=== PATIENT | male | born 1955 | race Caucasian/White ===

== ENCOUNTER 2021-02-24 07:56 | Emergency (ER) | payer BC, OTHER ==
--- OUTSIDE RECORDS SUMMARY | 2021-02-24 07:59 | XMS REPORT | Continuity of Care Document ---
:1955 Author Organization [facility] t Address [address] [place] [address] Care Team Providers Name Role Phone Geno ORTA Primary Care Physician Doctor Unassigned, Name Attending Clinician Unavailable Toan Higgins MD Attending Clinician Corbin Lora MD Attending Clinician Ramirez Escalera MD Attending Clinician Herlinda YEBOAH Attending Clinician MD TOAN HIGGINS Attending Clinician Unavailable Renato Jones PA-C Attending Clinician Manfred Silvestre MA Attending Clinician Unavailable Provider Attending Clinician Unavailable Lab, Fam Pob I Attending Clinician Unavailable RONALDO Admitting Clinician Unavailable MD TOAN HIGGINS Admitting Clinician Unavailable Payers Payer Name Policy Type Policy Effective Date Expiration Date Sour ce Number [facility] [id number] 2019 [facility] MEDICARE(WELLME 00:00:00 Hospital D) [facility] MEDICARE ADVANTAGE [id number] 1/2020-Present MO Problems Condition Condition Condition Status Onset Resolution Last Treating Co mments Source Name Details Category Date Date Treatment Clinician Date Arthritis Arthritis Disease Active [facility] of knee, of knee, 02-04 st right right 00:00: Hospita 00 l Primary Primary Disease Active Overview: Meth jaqueline osteoarthr osteoarthr 01-[address] itis of itis of 00:00: g of this Hospi ta right knee right knee 00 note l might be different from the original. Added automatic ally from request for surgery [id number] Allergies, Adverse Reactions, Alerts This patient has no known allergies or adverse reactions. Social History Social Habit Start Date Stop Date Quantity Comments Source History of tobacco Current smoker Me [facility] use [facility] Exposure to Not sure [facility] SARS-CoV-2 (event) Hospit al Cigarettes smoked 2021-02-05 2021-02-[address] current (pack per 00:00:00 00:00:00 Hospita l day) - Reported Cigarette 2021-02-05 2021-02-05 [facility] pack-years 00:00:00 00:00:00 Hospital Tobacco use and 2021-02-05 2021-02-05 Never used [facility] exposure 00:00:00 00:00:00 Hospital Alcohol intake 2021-02-05 2021-02-05 Current drinker [facility]o dist 00:00:00 00:00:00 of alcohol Hospital (finding) Sex Assigned At [birth year] [facility] 00:00:00 00:00:00 Hospital Smoking Status Start Date Stop Date Source Former smoker 2021-02-05 00:00:00 2021-02-05 00:00:00 [facility] Medications Ordered Filled Start Stop Current Ordering Indication Dosage Frequency Signature Comments Components Source Medication Medication Date Date Medication? Clinician (SIG) Name Name HYDROcodone 2020- [place] [address] 1{tbl} Q6H Take 1 Methodi -acetaminop 8-04 08-[address] hen ([place]) 00:00: 04:59 mouth [facility] 10-325 mg 00 :00 every 6 l per tablet (six) hours as needed for moderate pain for up to 10 days .acute pain. Max Daily Amount: 4 tablets losartan Yes 25mg QD Take 25 mg Met hodi (COZAAR) 25 7-[address] MG tablet 00:38: nightly. [facility] 56 l ascorbic 2020- Yes 1000mg Q.5D Take 1,000 M ethodi acid 7-[address] (VITAMIN C 00:38: mouth 2 [facility] ORAL) 56 (two) l times a day. RED YEAST Yes QD Take by Metho di RICE ORAL 7-[address] 00:38: daily. Hospita 56 l docosahexae Yes QD Take by Met hodi noic 02-[address] acid/epa 00:38: daily. Hospita (FISH OIL 56 l ORAL) HYDROcodone 2020- No 1{tbl} Q6H Take 1 Methodi -acetaminop 02-05-[address] hen ([place]) 00:00: 04:59 mouth [facility] 10-325 mg 00 :00 every 6 l per tablet (six) hours as needed for severe pain for up to 10 days .acute pain. Max Daily Amount: 4 tablets traMADoL 2020- No 50mg Q4H Take 1 Metho di (ULTRAM) 50 02-05 tablet (50 s t mg tablet 00:00: 04:59 mg total) Ho spita 00 :00 by mouth l every 4 (four) hours as needed for moderate pain for up to 10 days .acute pain. methylPREDN 2020- No follow Met hodi ISolone 02-[address] (Medrol, 00:00: 04:59 directions Ho spita Tae,) 4 mg 00 :00 l tablet ezetimibe Yes 1{tbl} QD Take 1 Meth jaqueline (ZETIA) 10 6-[address] mg tablet 00:00: mouth Hospita 00 every l morning. sildenafiL Yes 1{tbl} Take 1 Met hodi (VIAGRA) 6-[address] 100 MG 00:00: mouth as Hospita tablet 00 needed. l allopurinol Yes 300mg QD Take 300 M ethodi (ZYLOPRIM) 2-[address] 300 MG 00:00: mouth Hospita tablet 00 every l morning. hydroCHLORO Yes 25mg QD Take 25 mg Methodi thiazide 2-[address] (HYDRODIURI 00:00: every Hospi ta L) 25 MG 00 morning. l tablet carvedilol Yes 12.5mg Q.5D Take 12.5 Methodi (COREG) 2-[address] 12.5 MG 00:00: mouth 2 Hospita tablet 00 (two) l times a day with meals. Vital Signs Vital Name Observation Time Observation Value Comments Source Systolic blood 2021-02-05 22:36:00 130 mm[Hg] [facility] pressure Diastolic blood 2021-02-05 22:36:00 71 mm[Hg] [facility] pressure Heart rate 2021-02-05 17:57:28 58 /min [facility] Body temperature 2021-02-05 17:57:28 35.83 Dana [facility] Respiratory rate 2021-02-05 17:57:28 18 /min [facility] Oxygen saturation in 2021-02-05 17:57:28 97 /min [facility] Arterial blood by Pulse oximetry Body height 2021-02-04 14:40:00 190.5 cm [facility] Body weight 2021-02-04 14:40:00 87.635 kg [facility] BMI 2021-02-04 14:40:00 24.15 kg/m2 [facility] Procedures Procedure Date / Time Performing Clinician Source Performed HC COMPLETE BLD COUNT 2021-02-05 08:49:00 Negrita Jones [facility] W/AUTO DIFF Renato BASIC METABOLIC PANEL 2021-02-05 08:49:00 [facility] ESTIMATED GFR 2021-02-05 08:49:00 Negrita Jones spital Renato MAGNESIUM LEVEL 2021-02-05 08:49:00 Negrita Jones spital Ren[place] PHOSPHORUS LEVEL 2021-02-05 08:49:00 Negrita Jones ospital Ren[place] POC GLUCOSE 2021-02-04 18:52:00 [facility]ICAL [facility]OLOG[facility] 2021-02-04 [facility]:11[facility] 2021-02-04 16:58:00 Ward Boles [facility] SUPRAGLOTTIC AIRWAY Stevie ARTHROPLASTY, KNEE, TOTAL 2021-02-04 16:51:00 [facility] POC GLUCOSE 2021-02-04 14:43:[address] [facility] ECG PRE/POST OP 2021-01-30 23:05:41 [facility] ospital HEMOGLOBIN A1C 2021-01-30 22:55:00 [place] [facility] ospital COVID-19 QUALITATIVE 2021-01-30 22:36:00 Ronaldo Kellie Toan [facility] RT-PCR IN ARTHROCENTESIS 2020-10-03 19:00:00 Laury[place]itney Negrita [facility] ASPIR&/INJ MAJOR JT/BURSA Renato W/O US IN ARTHROCENTESIS 2020-06-19 21:00:00 Ronaldo Kellie [facility] ASPIR&/INJ MAJOR JT/BURSA W/O US XR KNEE 3 VW RIGHT 2020-06-19 20:57[facility]EN[facility]AL[facility] 2020-06-19 [facility]:57[facility] Planned Activity Planned Date Details Comments Source Future Scheduled Test COVID-19 VACCINE (1) [facility] [code = COVID-19 VACCINE (1)] Future Scheduled Test Hepatitis C screening [facility] (procedure) [code = 944610035] Future Scheduled Test COLONOSCOPY SCREENING [facility] [code = COLONOSCOPY SCREENING] Future Scheduled Test SHINGLES VACCINES (#1) [facility] [code = SHINGLES VACCINES (#1)] Future Scheduled Test [address]+ [address]UM[address] [facility] VACCINE (1 of 1 - PPSV23) [code = 65+ PNEUMOCOCCAL VACCINE (1 of 1 - PPSV23)] Future Scheduled Test INFLUENZA VACCINE [code [facility] = INFLUENZA VACCINE] Encounters Start End Encounter Admission Attending Care Care Encounter Source Date/Time Date/Time Type Type Clinicians Facility Department ID 2021-02-21 2021-02-21 Orders Doctor HARLEY Da Silva2.840.114 [id number] 00:00:00 00:00:00 Only UnassignedASHVIN 350.1.13.10 [place] [facility] 4.2.7.2.686 [id number] [id number] 2021-02-13 2021-02-13 Orders Doctor HARLEY Da Silva2.840.114 [id number] 00:00:00 00:00:00 Only UnassignedASHVIN 350.1.13.10 [place] [facility] 4.2.7.2.686 [id number] 009 2021-02-122021-02-12 Orders Ronaldo, 1.2.840.1 [id number] Methodi 00:00:00 00:00:00 Only Kellie Joya 09207.1.[address] 3.430.2.7 Hospit a .3.944071 l .8 2021-02-12 2021-02-12 Telephone [facility] 1.2.840.114 [id number] 00:00:00 00:00:00 [facility] 350.1.13.10 [facility] 4.2.7.2.686 Professio [phone] nal [address] One 2021-02-04 2021-02-05 Hospital Ronaldo, 1.2.840.1 [id number] Methodi 09:10:00 19:38:00 Encounter Kellie Joya 57652.1.[address] 3.430.2.7 Hospit a .3.561080 l .8 2021-02-05 2021-02-05 Orders Ronaldo, 1.2.840.1 [id number] Methodi 00:00:00 00:00:00 Only Kellie Joya 03015.1.[address] 3.430.2.7 Hospit a .3.856517 l .8 2021-02-05 2021-02-05 [facility] 1.2.840.114 [id number] 00:00:00 00:00:00 [facility] 350.1.13.10 [facility] 4.2.7.2.686 Professio [phone] nal 044 Office [address] One 2021-02-04 2021-02-05 [facility] [id number] [address] [facility] 00:00:00 00:00:00 KELLIE Castellanos [facility] 2021-02-04 2021-02-04 Surgery Ronaldo, 1.2.840.1 [id number] Methodi 13:30:00 15:50:[address]17.1.[address] 3.430.2.7 Hospit a .3.023992 l .8 2021-02-04 2021-02-04 Anesthesia Gallo Escalera 1.2.840 .1 [id number] Methodi 11:51:00 13:38:00 Event [place] 33216.1.[address] 3.430.2.7 Hospit a .3.906980 l .8 2021-02-03 2021-02-03 Telephone Ronaldo, 1.2.840.1 [id number] [id number] Methodi 00:00:00 00:00:00 Kell[address] Joya [address].1.[address] 3.430.2.7 Hospit a .3.116819 l .8 2021-01-30 2021-01-30 Pre-Admiss Ronaldo, 1.2.840.1 [id number] Methodi 15:56:52 16:56:52 ion Kellie Joya 26293.1.[address] Testing 3.430.2.7 Hospit a .3.689090 l .8 2021-01-30 2021-01-30 Office Carlos Manuel 1.2.840.1 [id number] [id number] Methodi 14:37:14 15:33:14 Visit Negrita 82116.1.[address] Renato 3.430.2.7 Hospit a .3.040638 l .8 2021-01-30 2021-01-30 Travel 1.2.840.1 1.2.261.187 8202 [id number] Methodi 00:00:00 00:00:[address] 3.430.2.7 0.2.7.3.698 spita .3.456938 084.8 l .8 2021-01-30 2021-01-30 Outpatient CARLOS MANUEL [facility] [id number] [facility] 00:00:00 00:00:00 NEGRITA [address] 2021-01-30 2021-01-30 Outpatient RONALDO [facility] [id number] [address] [facility] 00:00:00 00:00:00 KELLIE Ahumada [facility] 2021-01-28 2021-01-28 Travel 1.2.840.1 1.2.830.518 [id number] [id number] Methodi 00:00:00 00:00:[address] 3.430.2.7 0.2.7.3.698 Ho spita .3.471324 084.8 l .8 2021-01-28 2021-01-28 Marissa Truong 1.2.840.1 [id number] Methodi 00:00:00 00:00:00 Only L [address]802.1.[address] 3.430.2.7 Hospit a .3.098748 l .8 2021-01-22 2021-01-22 Telephone [facility] 1.2.840.114 [id number] 00:00:00 00:00:00 [facility] 350.1.13.10 Edward Callao 4.2.7.2.686 Professio [phone] [place] [address] [address] 2021-01-20 2021-01-20 Documentat Provider, 1.2.840.1 [id number] Methodi 00:00:00 00:00:00 ion Unknown 47130.1.[address] 3.430.2.7 Hospit a .3.822957 l .8 2021-01-17 2021-01-17 Lmft Lab, [facility] 1.2.840.114 [id number] 08:38:41 08:58:41 Visit [facility] 350.1.13.10 [place] 4.2.7.2.686 Professio [phone] [place] [address] [address] 2021-01-17 2021-01-17 Office [facility] 1.2.840.114 [id number] 08:10:32 08:25:32 Visit [facility] 350.1.13.10 Edward Callao 4.2.7.2.686 Professio [phone] [place] [address] [address] 2021-01-15 2021-01-15 Marissa Truong 1.2.840.1 [id number] Methodi 00:00:00 00:00:00 Only L [address]402.1.[address] 3.430.2.7 Hospit a .3.003145 l .8 2020-10-03 2020-10-03 Office Carlos Manuel, 1.2.840.1 [id number] [id number] Methodi 13:18:21 14:58:27 Visit Negrita 48448.1.[address] Renato 3.430.2.7 Hospit a .3.443003 l .8 2020-10-03 2020-10-03 Outpatient CARLOS MANUEL [facility] [id number] [facility] 00:00:00 00:00:00 NEGRITA [address] 2020-10-02 2020-10-02 Travel 1.2.840.1 1.2.241.312 0866 [id number] Methodi 00:00:00 00:00:[address] 3.430.2.7 0.2.7.3.698 spita .3.650115 084.8 l .8 2020-06-19 2020-06-26 Office Ronaldo, 1.2.840.1 [id number] Methodi 14:37:34 16:40:34 Visit Kellie Joya 94102.1.[address] 3.430.2.7 Hospit a .3.153977 l .8 2020-06-19 2020-06-19 [facility] [id number] [facility] 00:00:00 00:00:00 KELLIE [address] 2020-06-19 2020-06-19 Outpatient [facility] [id number] 9[address] [facility] 00:00:00 00:00:00 KELLIE [address] 2020-06-19 2020-06-19 Outpatient [facility] [id number] [address] [facility] 00:00:00 00:00:00 KELLIE [address] 2020-06-19 2020-06-19 Travel 1.2.840.1 1.2.472.540 7051 [id number] Methodi 00:00:00 00:00:[address] 3.430.2.7 0.2.7.3.698 Ho spita .3.684288 084.8 l .8 2020-06-17 2020-06-17 Travel 1.2.840.1 1.2.639.821 3780 [id number] Methodi 00:00:00 00:00:[address] 3.430.2.7 0.2.7.3.698 Ho spita .3.382864 084.8 l .8 Results Test Description Test Time Test Comments Results Result Comments Source Surgical pathology request 2021-02-07 12:23:59 Test Item Value Reference Range Interpretation Comme nts Case number (test code = 9788038) [id number] Surgical pathology report (test code = See link below for PDF Lab R eport 225) Result status (test code = 9981824) This is Final Report for [id number] [facility] [id number] 18:52:56 Test Item Value Reference Range Interpretation Comments POC glucose (test code = 82049-3) 152 mg/dL 65-99 H Lab Interpretation (test code = Abnormal 34908-6) [facility]2021-07-27 16:58:00Ward Boles CRNA 02/04/2021 12:19 PMAirway Date/Time: 02/04/2021 11:58 AM Location:OR Performed by: PJ/AAAnesthesiologist: Gallo Escalera MDResiangelt/PJ/AA: Ward Boles CRNAAuthorized by: Gallo Escalera MD Urgency: ElectiveDifficult Airway: No Preoxygenated with 100% O2: Yes C-spine Precautions Maintained Throughout: Yes Mask Ventilation: Not attemptedFinal Airway Type: Supraglottic airwayFinal LMA: AmbuLMA Size: 5Number of Attempts at Approach: 1 Unable to seat I-gel 5 without large leak. Inserted Ambu style #5. Easy and atraumatic LMA insertion; Dentition unchanged; AOSI; +BSEB, +ETCO2; Eyes paper taped post [facility]chi [facility] Pre/Post [id number] 03:18:29 Test Item Value Reference Range Interpretation Comments Ventricular rate (test code = 253) Atrial rate (test code = 255) IN interval (test code = 266) QRSD interval (test code = 260) QT interval (test code = 264) QTC interval (test code = 265) P axis 1 (test code = 267) QRS axis 1 (test code = 268) T wave axis (test code = 270) EKG impression (test Marked sinus code = 273) bradycardia-Abnormal ECG-No previous ECGs available-Electronica lly Signed By Bartolo ORTA [facility] ([id number]) on 01/30/2021 10:18:28 PM Buddhist AsszfxbySAEN-IhJ-7 (COVID-19) RNA [Presence] in Respiratory specimen by JONATHON with probe [id number] 02:02:38 Test Item Value Reference Range Interpretation Comments SARS-CoV-2 (COVID-19) RNA Not detected Not-Detected [Presence] in Respiratory specimen by JONATHON with probe detection (test code = 33417-0) Whether patient is employed in a healthcare setting (test code = 94706-9) Whether the patient has symptoms related to condition of interest (test code = 12564-6) Patient was hospitalized because of this condition (test code = 68474-4) Whether the patient was admitted to intensive care unit (ICU) for condition of interest (test code = 30928-2) Whether patient resides in a congregate care setting (test code = 36434-8) Large Joint Arthrocentesis: knee, R [id number] 19:00:00Negrita Jones PA-C 10/03/2020 1:31 PMLarge Joint Arthrocentesis: knee, R kneePerformedby: Negrita Jones PA-CAuthorized by: Negrita Jones PA-C Consent given by: PatientIndications: PainLocation: KneeSite: R kneePrep: patient was prepped and draped in usual sterile fashion Ultrasound guided?: No Needle size (right): 25 GRight side approach: AnterolateralRight side medications: 80 mg methylPREDNISolone acetate 40 mg/mL; 2 mL lidocaine 10 mg/mL (1 %)[facility] Knee Cortisone [id number] 21:00:00 Kellie Higgins MD 06/19/2020 3:55 PMRight Knee Cortisone injectionConsent given by: patientTimeout: Immediately prior to procedure a time out was called to verify the correct patient, procedure, equipment, technician support engineer and site/side marked as required Supporting DocumentationIndications: pain Procedure DetailsPreparation: Patient was prepped and draped in the usual sterile fashionUltrasoundguided: noLocation: knee - R knee Right side:Approach: anteromedialRight knee medications administered: 2 mL lidocaine 10 mg/mL (1 %); 80 mg methylPREDNISolone acetate 40 mg/mLPatient tolerance: patient tolerated the procedure well with no immediate complications[facility]
--- NOTE | 2021-02-24 11:15 | RAD REPORT ---
EXAM DESCRIPTION: RAD - Chest Single View - 02/24/2021 11:08 am CLINICAL HISTORY: COUGH COMPARISON: ABDOMEN 1 VIEW KUB dated 02/09/2008; CT-STONE PROTOCOL dated 02/08/2008 FINDINGS: Prominence of the interstitial markings in the lung bases, right greater than left. No con solidative airspace process is identified. A few scattered nonspecific nodular foci noted. The heart size is within normal limits.No acute osseous abnormality. No significant pleural effusions or pneumo thorax. IMPRESSION: Prominent lung markings in the bases as well as some scattered nodules which could refle ct a mild infectious or inflammatory process.
--- NOTE | 2021-02-24 11:28 | ER ---
Nurse's Notes [facility] Name: Chu Emanuel Age: 65 yrs Sex: Male : 1955 Arrival Date: 02/24/2021 Time: 08:11 Bed 10 Private MD: Diagnosis: Other viral pneumonia;Viral infection, unspecified Presentation: 02/24 08:15 Chief complaint: Patient states: Body aches, fever and generally not feeling well x 1 ss week. Pt test positive for COVID 4 days ago. Coronavirus screen: Client presents with at least one sign or symptom that may indicate coronavirus-19. Ebola Screen: Patient denies exposure to infectious person. Patient denies travel to an Ebola-affected area in the 21 days before illness onset. Initial Sepsis Screen: Does the patient meet any 2 criteria? No. Patient's initial sepsis screen is negative. Does the patient have a suspected source of infection? No. Patient's initial sepsis screen is negative. Risk Assessment: Do you want to hurt yourself or someone else? Patient reports no desire to harm self or others. Onset of symptoms was February 17, 2021. Care prior to arrival: Medication(s) given: Normal saline infusion, 1000 mL, Tylenol, 1000 mg, IV initiated. 20 GA, in the right antecubital area. 08:15 Method Of Arrival: Ambulatory ss 08:15 Acuity: KLEVER 3 ss Historical: - Allergies: 08:18 No Known Allergies; ss - Home Meds: 08:18 carvedilol oral [Active]; hydrocodone [Active]; Hydrochlorothiazide Oral [Active]; ss - PMHx: 08:18 Hypertensive disorder; ss - PSHx: 08:18 R knee replacement; L hip replacement; Hernia repair; ss - Immunization history:: Client reports having NOT received the Covid vaccine. - Social history:: Smoking status: Patient denies any tobacco usage or history of. Vital Signs: 08:15 BP 110 / 67; Pulse 71; Resp 16; Temp 101(TE); Pulse Ox 95% on R/A; ss 10:30 Temp 98.1(O); Pulse Ox 98% on R/A; iw ED Course: 08:11 Patient arrived in ED. ss 08:18 Triage completed. ss 08:18 Arm band placed on left wrist. ss 10:30 Meg Whitaker, RN is Primary Nurse. iw 10:31 Missy Caro is Attending Physician. sp3 11:08 CXR XRAY In Process Unspecified. EDMS 14:11 Notified ED physician of a critical lab result(s). covid positive. ll1 Administered Medications: 11:32 CANCELLED (Physician Discretion; dose): REGEN-COV Dose Pack 120 mg/mL-120 mg/mL (EUA) 1 sp3 application IV at bolus continuous 11:46 Drug: REGEN-COV Dose Pack 120 mg/mL-120 mg/mL (EUA) 1 kit {Note: 600 mg dose given over iw 1 hour .} Route: IV; Rate: bolus; Site: right antecubital; 12:50 Follow up: IV Status: Completed infusion iw Outcome: 11:27 Discharge ordered by . sp3 13:55 Patient left the ED. iw Signatures: Dispatcher [employer] EDMS Meg Whitaker RN RN Rafia Mcbride RN RN ss Lewis, Lynsay, RN RN [facility] Missy Caro sp3
--- NOTE | 2021-02-24 11:28 | EDPHYS ---
Physician Documentation [facility] Name: Chu Emanuel Age: 65 yrs Sex: Male : 1955 Arrival Date: 02/24/2021 Time: 08:11 Bed 10 Private MD: ED Physician Missy Caro HPI: 02/24 10:42 This 65 yrs old Male presents to ER via Ambulatory with complaints of Body sp3 aches- COVID +. 10:42 65-year-old male with a history of hypertension presents with 6-day history of cough sp3 and congestion and body aches with a T-max fever of 102 Fahrenheit who took a home COVID-19 test which was positive approximately 3 days ago and now presents with increasing fatigue and mild shortness of breath. Patient denies chest pain, headache, bleeding, abdominal pain, nausea, vomiting, diarrhea, syncope, loss of taste or smell, known travel history, known sick contacts, any other aspects of review of systems at this time.. Historical: - Allergies: 08:18 No Known Allergies; ss - Home Meds: 08:18 carvedilol oral [Active]; hydrocodone [Active]; Hydrochlorothiazide Oral [Active]; ss - PMHx: 08:18 Hypertensive disorder; ss - PSHx: 08:18 R knee replacement; L hip replacement; Hernia repair; ss - Immunization history:: Client reports having NOT received the Covid vaccine. - Social history:: Smoking status: Patient denies any tobacco usage or history of. ROS: 10:43 Constitutional: Positive for body aches, chills, fatigue, fever, malaise. sp3 10:43 Constitutional: Positive for Negative for Please see HPI for remainder of ROS. 10:43 Cardiovascular: Negative for chest pain, edema. 10:43 Respiratory: Positive for cough, shortness of breath. 10:43 All other systems are negative. Exam: 10:45 Constitutional: This is a well developed, well nourished patient who is awake, alert, sp3 and in no acute distress. Head/Face: Normocephalic, atraumatic. Eyes: Pupils equal round and reactive to light, extra-ocular motions intact. Lids and lashes normal. Conjunctiva and sclera are non-icteric and not injected. Cornea within normal limits. Periorbital areas with no swelling, redness, or edema. ENT: Nares patent. No nasal discharge, no septal abnormalities noted. External auditory canals are clear. Oropharynx with no redness, swelling, or masses, exudates, or evidence of obstruction, uvula midline. Mucous membranes moist. Neck: Trachea midline, no thyromegaly or masses palpated, and no cervical lymphadenopathy. Supple, full range of motion without nuchal rigidity, or vertebral point tenderness. No Meningismus. Chest/axilla: Normal chest wall appearance and motion. Nontender with no deformity. No lesions are appreciated. Cardiovascular: Regular rate and rhythm with a normal S1 and S2. No gallops, murmurs, or rubs. Normal PMI, no JVD. No pulse deficits. Abdomen/GI: Soft, non-tender, with normal bowel sounds. No distension or tympany. No guarding or rebound. No evidence of tenderness throughout. Skin: Warm, dry with normal turgor. Normal color with no rashes, no lesions, and no evidence of cellulitis. Neuro: Awake and alert, GCS 15, oriented to person, place, time, and situation. Cranial nerves II-XII grossly intact. Motor strength 5/5 in all extremities. Sensory grossly intact. Cerebellar exam normal. Normal gait. Psych: Awake, alert, with orientation to person, place and time. Behavior, mood, and affect are within normal limits. 10:45 Respiratory: the patient does not display signs of respiratory distress, Respirations: normal, Breath sounds: + upper airway congestion. Vital Signs: 08:15 BP 110 / 67; Pulse 71; Resp 16; Temp 101(TE); Pulse Ox 95% on R/A; ss 10:30 Temp 98.1(O); Pulse Ox 98% on R/A; iw MDM: 10:33 Patient medically screened. sp3 10:46 ED course: Patient with COVID-19 with mild symptoms and no inflammatory response. sp3 Patient's pulse ox is normal as well as the rest of his vital signs. Will recommend patient to take 325 mg of aspirin daily and a multivitamin. Patient told to isolate and follow-up with his primary physician after 10 days or return here for any worsening symptoms or any concerns. Patient verbalized understanding and has no further questions. At this time I am not suspicious for secondary process including acute coronary syndrome, pulmonary embolism, bacterial pneumonia, sepsis, shock, or any other critical diagnoses at this time.. 11:23 ED course: X-ray demonstrates likely mild viral pneumonia bilaterally. Patient remains sp3 to have normal pulse oxygenation and is otherwise stable. Will discharge patient home as per previous plan and call him with his COVID-19 results.. 11:33 ED course: Patient is agreed to 1 Regeneron dose to ease his symptoms prior to sp3 discharge. 600 mg of Regeneron will be administered per standard protocol.. 02/24 13:50 Order name: SARS-COV-2 RT PCR EDMS 02/24 10:41 Order name: CXR XRAY; Complete Time: 11:20 sp3 Administered Medications: 11:32 CANCELLED (Physician Discretion; dose): REGEN-COV Dose Pack 120 mg/mL-120 mg/mL (EUA) 1 sp3 application IV at bolus continuous 11:46 Drug: REGEN-COV Dose Pack 120 mg/mL-120 mg/mL (EUA) 1 kit {Note: 600 mg dose given over iw 1 hour .} Route: IV; Rate: bolus; Site: right antecubital; 12:50 Follow up: IV Status: Completed infusion iw Disposition Summary: 02/24/21 11:27 Discharge Ordered Location: Home sp3 Condition: Stable sp3 Diagnosis - Other viral pneumonia sp3 - Viral infection, unspecified sp3 Followup: sp3 - With: Private Physician - When: As needed - Reason: Discharge Instructions: - Discharge Summary Sheet sp3 - Viral Respiratory Infection sp3 - COVID-19 sp3 - 10 Things You Can Do to Manage Your COVID-19 Symptoms at Home - [facility] sp3 Forms: - Medication Reconciliation Form sp3 - Thank You Letter sp3 - Antibiotic Education sp3 - Prescription Opioid Use sp3 Signatures: Dispatcher [employer] EDMS Meg Whitaker RN RN iw Rafia Mcbride RN RN ss Missy Caro sp3 Corrections: (The following items were deleted from the chart) 11:32 11:29 REGEN-COV Dose Pack 120 mg/mL-120 mg/mL (EUA) 1 application IV at bolus sp3 continuous ordered. sp3 12:46 10:41 CORONAVIRUS+GRACEZ ordered. EDMS EDMS
[2021-02-24] MEDS ORDERED: CASIRIVIMAB/IMDEVIMAB 10 ML VIAL ONE (11:53)
[2021-02-24] MEDS ORDERED: NA CHLORIDE 0.9% 250 ML ONE (12:00)
[2021-02-24 14:10] VITALS: BP 110/67
[2021-02-24 14:11] VITALS: TEMP 98.1; O2SAT 98
== END 2021-02-24 13:55 | disposition home or self-care (01) ==
LOC: ER 07:56
DX: U07.1 COVID-19 (principal); J12.89 Other viral pneumonia; I10 Essential (primary) hypertension
CPT/HCPCS: 71045; U0003; J7050; 96365; 99283

== ENCOUNTER 2023-11-16 10:50 | Day surgery (SDC) | payer OTHER ==
--- NOTE | 2023-11-12 14:56 | RAD REPORT ---
EXAM DESCRIPTION: RAD - Chest Pa And Lat (2 Views) - 11/12/2023 2:45 pm CLINICAL HISTORY: Preop COMPARISON: Chest Single View dated 02/24/2021; ABDOMEN 1 VIEW KUB dated 02/09/2008 FINDINGS: Lines: None. Lungs: No evidence of edema or pneumonia. Prominence of the basilar interstitial markings is unchange d. Pleural: No significant pleural effusions or pneumothorax. Cardiac: The heart size is within normal limits. Mediastinum: Within normal limits. Bones: No acute fractures. Other: None IMPRESSION: No acute cardiopulmonary disease.
[2023-11-12 15:23] LABS: Absolute Lymphocytes (CBC) 1.6 K/uL (0.7-4.9); Absolute Monocytes 0.8 K/uL (0.1-1.3); Absolute Neutrophil 7.3 K/uL (1.8-8.0); Basophils % 0.3 % (0-1.3); Eosinophils % 0.2 % (0-4.4); Hematocrit 41.8 % (39.6-49.0); Hemoglobin 14.5 g/dL (13.6-17.9); Lymphocytes % 16.4 % (15.3-44.8); MCH 33.5 pg (27.0-35.0); MCHC 34.7 g/dL (32.0-36.0); MCV 96.4 fL (80-100); MPV 7.9 fL (7.6-11.3); Monocytes % 7.9 % (3.3-12.3); Neutrophils % 75.2 % (41.7-73.7); Nucleated Red Blood Cells % 0.1 % (0-0); Platelets 196 thou/uL (152-406); RBC Red Blood Cell Count 4.34 M/uL (4.33-5.43); Red Cell Distribution Width 12.5 % (12.1-15.2)
[2023-11-12 15:28] LABS: PT Prothrombin Time 11.6 SECONDS (9.5-12.5); PTT, Activated Partial Thromb 28.3 SECONDS (24.3-36.9); Protime INR 1.06
[2023-11-12 15:36] LABS: Anion Gap 9.2 mEq/L (5.0-15.0); Potassium 3.2 mEq/L (3.5-5.1)
--- NOTE | 2023-11-15 14:47 | EKG ---
Test Date: 2023-11-12 Test Time: 14:31:10 Alloy Weigher: PEGGY MEASUREMENT RESULTS: Intervals: Rate: 63 ID: [id number] QRSD: 114 QT: 448 QTc: 458 [place]: P: 62 ID: [id number] QRS: 46 T: 70 INTERPRETIVE STATEMENTS: Normal sinus rhythm Normal ECG No previous ECG available for comparison Electronically Signed On 11-15-23 14:40:04 CDT by Michele Ojeda
[2023-11-16] MEDS ORDERED: NA CHLORIDE 0.9% 500 ML ONE (10:58)
[2023-11-16] MEDS ORDERED: HEPA 1000U/500MLS 1,000 UNIT/500 ML BAG IV ONE ×2 (12:17→12:20)
[2023-11-16] MEDS ORDERED: HEPARIN 5000 UNIT/ML 1 ML VIAL ONE (12:18)
[2023-11-16] MEDS ORDERED: ATROPINE SULF 1 MG/10 ML SYR IV ONE (12:18)
[2023-11-16] MEDS ORDERED: FENTANYL CITR 100 MCG/2 ML ONE (12:18)
[2023-11-16] MEDS ORDERED: LIDOCAINE 1% 20 ML MDV ONE (12:18)
[2023-11-16] MEDS ORDERED: MIDAZOLAM HCL 2 MG/2 ML INJ ONE (12:18)
[2023-11-16] MEDS ORDERED: NALOXONE 0.4 MG/ML VIAL ONE (12:19)
[2023-11-16] MEDS ORDERED: HEPARIN 10,000 UNIT/10 ML VIAL IV ONE (12:19)
[2023-11-16] MEDS ORDERED: CLOPIDOGREL 75 MG TABLET ONE (12:19)
[2023-11-16] MEDS ORDERED: TICAGRELOR 90 MG TABLET PO ONE (12:19)
[2023-11-16] MEDS ORDERED: FLUMAZENIL 0.1 MG/ML (5 mL VIAL) IV ONE (12:19)
[2023-11-16] MEDS ORDERED: ASPIRIN 325 MG TAB ONE (12:20)
[2023-11-16 16:34] VITALS: O2SAT 96
[2023-11-16 17:07] VITALS: BP 137/85
--- NOTE | 2023-11-17 00:18 | OP ---
Date of Procedure: 11/16/2023 Surgeon: MARCELLE MENENDEZ Procedure Performed: Bilateral selective coronary angiogram. Indication: Carotid stenosis. Access: Right common femoral artery 4-Danish, closed with manual pressure. Complications: None. Bleeding: Less than 50 mL. Anesthesia: Total sedation time was 30 minutes. Description Of Procedure: After risks, benefits, and alternatives were explained, the patient agreed to procedure and signed informed consent. The patient was brought into cardiac catheterization [facility], prepped and draped in usual sterile fashion. I accessed the right common femoral artery usin g a micropuncture kit, ultrasound-guided fluoroscopy, and placed a 4-Danish venous sheath and took a 4-Danish 3DRC catheter into the aortic root, engaged the right common carotid artery, took standard v iews and then engaged left common carotid artery, took standard views and removed the catheter and th e sheath, and manual pressure was used for closure with good hemostasis. Findings: 1.Right common carotid distally at about 80% at the bulb and the right internal carotid artery proxi [place] is 90% stenosed and the external carotid artery is normal. 2.Left common carotid, left internal carotid, and left external carotid are all normal. 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 Plan: Endarterectomy. SR/MODL Voice ID: [id number] Report ID: [id number]
== END 2023-11-16 17:02 | disposition home or self-care (01) ==
LOC: CCL 10:50
PROVIDERS: ATTEND Internal Medicine
DX: I65.21 Occlusion and stenosis of right carotid artery (principal); I73.9 Peripheral vascular disease, unspecified; I51.7 Cardiomegaly; I34.0 Nonrheumatic mitral (valve) insufficiency; I10 Essential (primary) hypertension; E78.5 Hyperlipidemia, unspecified; Z87.891 Personal history of nicotine dependence; Z79.82 Long term (current) use of aspirin; Z79.899 Other long term (current) drug therapy
CPT/HCPCS: 93005; 85025; 80048; 36415; 85610; 85730; 71046; 36222; 76937; C1893; J2001; J2250; J3010; J7040; 99152; 99153; J0461; J1644; J2310